=== PATIENT | female | born 1950 | race Caucasian/White ===

== ENCOUNTER 2016-08-07 22:37 | Inpatient (IN) | payer OTHER ==
[2016-08-07] MEDS ORDERED: IPRATROPIUM/ALBUTEROL 3 ML DEYVIAL IH ONE (22:41)
[2016-08-07] MEDS ORDERED: NS 1,000 ML IV ONE (22:41)
--- NOTE | 2016-08-07 22:41 | EDPHY ---
H & P HPI/ROS: HPI CHIEF COMPLAINT: Shortness of breath HISTORY OF PRESENT ILLNESS: This patient is 66-year-old female, significant past medical history for COPD, wears 2-3 L at night, presents emergency room with worsening shortness of breath. Upon EMS arrival patient was found to be 3 word dyspnea, tachypnea, try potting in moderate to severe respiratory distress. She received a DuoNeb breathing treatment around, 125 mg IV Solu- Medrol was brought into the emergency room. Upon arrival to the emergency room she is tachycardic to the 170s, tachypneic to the 40s, tripoding and in severe respiratory distress. I did Greet the patient upon arrival she is moved ER room 2 and placed on full face BiPAP for severe respiratory distress. Past Medical History: COPD, emphysema, oxygen dependent at night hypertension, hyperlipidemia Past Surgical History: Denies significant surgical history Social History: Denies drugs, alcohol, tobacco products, or alcohol Family History: Noncontributory ROS REVIEW OF SYSTEMS: A comprehensive 10 point review of systems is otherwise negative aside from elements mentioned in the history of present illness. Exam Constitutional severe respiratory distress, Anxious,triage nursing summary reviewed, vital signs reviewed, tachycardic, tachypneic Eyes normal conjunctivae and sclera, EOMI, PERRLA. HENT normal inspection, atraumatic, moist mucus membranes, no epistaxis, neck supple/ no meningismus, no raccoon eyes. Respiratory severe respiratory distress, decreased breath sounds bilaterally, tripoding Cardiovascular tachycardic , regular rhythm, no murmur, no edema, distal pulses normal. Gastrointestinal soft, non-tender, no rebound, no guarding, normal bowel sounds, no distension, no pulsatile mass. Genitourinary no CVA tenderness. Musculoskeletal no midline vertebral tenderness, full range of motion, no calf swelling, no tenderness of extremities, no meningismus, good pulses, neurovascularly intact. Skin pink, warm, & dry, no rash, skin atraumatic. Neurologic anxious awake, alert and oriented x 3, AAOx3, moves all 4 extremities equally, motor intact, sensory intact, CN II-XII intact, normal cerebellar, normal vision, normal speech. Psychiatric normal mood/affect. Heme/Lymph/Immune no lymphadenopathy. Differential Diagnosis: Includes but is not limited to in but no particular order: COPD exacerbation, pneumonia, pneumothorax, respiratory distress. Medical Decision Making: This patient will be placed on full face BiPAP she will have continuous albuterol, patient had a chest x-ray, EKG, she will have an ABG after 30 minutes on BiPAP to see where we are. Watch her closely and monitor respiratory status. Re-evaluation: ED x-ray chest one view: clear lung funes however hyperinflated, COPD appearing x-ray. Imaging to by myself. 1119: Re-evaluation at this time patient is on full face BiPAP she does feel much better she is still noted to be tachypneic, better air movement on exam still wheezing. EKG interpretation by me on record in [employer] system. Impression time of EKG 10/26/2017, this is sinus tachycardia rate of 108, there is respiratory artifact in lead 1-3 AVF AVL AFVF however her precordial leads shows sinus rhythm, no ST elevation or significant ST depression. 1126: patient's ABG is pending at this time however she has made a great improvement on full face BiPAP. She did have a continuous neb breathing treatment. She has no chest pain at this time she does feel much better in terms of shortness of breath however does not have any chest pain. I have admitted her to the hospitalist service Dr. lisseth france. She has agreed to admit this patient. This patient is stable for step-down unit. Critical Care: Total Critical Care Time Spent Managing this Patient: 60 minutes. This time was spent Exclusively with this patient. This Care was exclusive of procedures. The Organ System/life at risk was respiratory failure This Patient was in Critical Condition because severe respiratory distress, hypoxia, COPD 1129: re-evaluation is noted her heart rate fluctuates from 120-170 he has very irregular appears to be in AFib with RVR. I have ordered her IV diltiazem bolus 10 mg IV diltiazem drip I have updated the hospitalist service. EKG interpretation by me on record in [employer] system. Impression time of EKG 5, this is AFib rate of 126, there are multiple PVCs nonspecific T-wave abnormality. Source: Patient, EMS Constitutional: Initial Vital Signs Temperature (C) 36.9 C 08/07/16 22:45 Heart Rate 127 H 08/07/16 22:45 Respiratory Rate 24 H 08/07/16 22:45 Blood Pressure 160/90 H 08/07/16 22:45 O2 Sat (%) 84 L 08/07/16 22:45 O2 Delivery Mode Room Air Allergies/Adverse Reactions: No Known Allergies Allergy (Unverified 08/07/16 22:46) Home Medications: Medication Instructions Recorded Albuterol [Proventil Inhaler HFA 1 - 2 puffs IH Q4H PRN 08/08/16 (*)] Aspirin EC [Aspirin EC 81 mg (*)] 81 mg PO DAILY 08/08/16 Atorvastatin Calcium [Lipitor 20 10 mg PO DAILY 08/08/16 mg (*)] Cyanocobalamin [Vitamin B12 (*)] 100 mcg PO DAILY 08/08/16 Levothyroxine [Synthroid 100 mcg 100 mcg PO DAILY06 08/08/16 (*)] Mometasone/Formoterol [Dulera 100 1 puffs IH HS 08/08/16 Mcg/5 Mcg Inhaler] Mometasone/Formoterol [Dulera 100 2 puffs IH DAILY 08/08/16 Mcg/5 Mcg Inhaler] Multivitamins [Multivitamin (*)] 1 each PO DAILY 08/08/16 Tears/Dextran 70/Hypromellose 1 drop EACHEYE Q2 PRN 08/08/16 [Natural Balance Tears (*)] Medical Decision Making - Data Points Laboratory Results: Laboratory Results 08/07/16 22:40 08/07/16 22:40 Microbiology Results: MICROBIOLOGY 08/07/16 23:10 Blood Blood Culture - Preliminary 08/07/16 22:55 Blood Blood Culture - Preliminary Medications Given: Discontinued Medications Albuterol/Ipratropium (Duoneb) 3 ml IH EDNOW ONE Stop: 08/07/16 22:42 Last Admin: 08/07/16 22:50 Dose: 3 ml Diltiazem HCl (Cardizem 25 Mg/5 Ml Vial) 10 mg IVP EDNOW ONE Stop: 08/07/16 23:30 Last Admin: 08/07/16 23:37 Dose: 10 mg Diltiazem HCl (Cardizem 25 Mg/5 Ml Vial) 10 mg IVP ONCE ONE Stop: 08/10/16 12:31 Last Admin: 08/10/16 12:53 Dose: 10 mg Sodium Chloride (Ns) 1,000 mls @ 0 mls/hr IV ONCE ONE PRN Reason: As Directed Stop: 08/07/16 22:42 Last Admin: 08/07/16 22:54 Dose: 1,000 mls Magnesium Sulfate (Magnesium Sulf 2 Gm (Premix)) 50 mls @ 50 mls/hr IV EDNOW ONE Stop: 08/07/16 23:41 Last Admin: 08/07/16 22:57 Dose: 50 mls Levofloxacin/Dextrose (Levaquin 750 Mg (Premix)) 150 mls @ 100 mls/hr IV ONCE ONE PRN Reason: Protocol Stop: 08/08/16 00:40 Last Admin: 08/07/16 23:15 Dose: 150 mls Diltiazem HCl 125 mg/ Dextrose 150 mls @ 0 mls/hr IV EDNOW ONE; As Directed PRN Reason: Protocol Stop: 08/07/16 23:30 Last Admin: 08/08/16 00:00 Dose: 150 mls Sodium Chloride (Ns) 1,000 mls @ 100 mls/hr IV CONT [facility] Stop: 02/03/17 23:44 Last Admin: 08/08/16 16:39 Dose: 1,000 mls Levofloxacin/Dextrose (Levaquin 750 Mg (Premix)) 150 mls @ 100 mls/hr IV Q24H EDEN PRN Reason: Protocol Stop: 09/07/16 08:59 Last Admin: 08/10/16 09:52 Dose: 150 mls Levothyroxine Sodium (Synthroid) 100 mcg PO DAILY06 [facility] Stop: 02/04/17 11:29 Last Admin: 08/09/16 05:34 Dose: 100 mcg Methylprednisolone Sodium Succinate (Solu-Medrol) 60 mg IVP Q6HRS [facility] Stop: 02/04/17 00:00 Last Admin: 08/09/16 11:46 Dose: 60 mg Departure - Departure Disposition: [facility] Acute Clinical Impression: COPD exacerbation, Respiratory distress, Atrial fibrillation with rapid ventricular response Condition: Critical
[2016-08-07] MEDS ORDERED: IPRATROPIUM/ALBUTEROL 3 ML DEYVIAL ONE (22:42)
[2016-08-07] MEDS ORDERED: MAGNESIUM SULF 2 GM/WATER 50 ML IV ONE (22:42)
[2016-08-07] MEDS ORDERED: ALBUTEROL 3 ML DEYVIAL ONE (22:42)
[2016-08-07 22:49] LABS: % IMMATURE GRANULYOCYTES 0.8 % (0.0-1.1); ABSOLUTE IMMATURE GRANULOCYTES 0.13 10^3/uL (0.00-0.10); ADD DIFF? NO; ADD MORPH? NO; ADD SCAN? NO; ATYPICAL LYMPHOCYTE FLAG 10 (0-99); FRAGMENT RBC FLAG 0 (0-99); HEMATOCRIT 50.6 % (38.0-47.0); HEMOGLOBIN 17.4 g/dL (12.6-16.3); LEFT SHIFT FLG 0 (0-99); LIPEMIA HEMOLYSIS FLAG 90 (0-99); MEAN CELL HEMOGLOBIN 31.1 pg (27.9-34.1); MEAN CELL HEMOGLOBIN CONCENTR. 34.4 g/dL (32.4-36.7); MEAN CELL VOLUME 90.4 fL (81.5-99.8); MEAN PLATELET VOLUME 8.8 fL (8.7-11.7); PLATELET CLUMPS FLAG 20 (0-99); PLATELET COUNT 320 10^3/uL (150-400); RED CELL DISTRIBUTION WIDTH 11.9 % (11.5-15.2)
[2016-08-07 23:01] LABS: APTT 25.2 SEC (23.0-38.0); INR 0.89 (0.83-1.16); PROTIME(PATIENT) 11.9 SEC (12.0-15.0)
[2016-08-07 23:04] LABS: ANION GAP 12 mEq/L (8-16); CALCIUM 9.8 mg/dL (8.5-10.4); CARBON DIOXIDE 33 mEq/l (22-31); CHLORIDE 94 mEq/L (97-110); CREATININE 0.5 mg/dL (0.6-1.0); GLOMERULAR FILTRATION RATE > 60; GLUCOSE 131 mg/dL (70-100); SODIUM 139 mEq/L (134-144)
[2016-08-07 23:16] LABS: TROPONIN I < 0.012 ng/mL (0-0.034)
--- NOTE | 2016-08-07 23:28 | CPEKG ---
Heart Rate: 117 RR Interval: 513 P-R Interval: 131 QRSD Interval: 92 QT Interval: 316 QTC Interval: 441 P [place]: 85 QRS [place]: 114 T Wave [place]: -61 EKG Severity - ABNORMAL ECG - EKG Impression: SINUS TACHYCARDIA EKG Impression: VENTRICULAR PREMATURE COMPLEX EKG Impression: RIGHT ATRIAL ABNORMALITY EKG Impression: ANTERIOR INFARCT, AGE INDETERMINATE EKG Impression: NONSPECIFIC T ABNORMALITIES, INFERIOR LEADS Electronically Signed By: Mari Powers 08-Aug-2016 20:39:47
[2016-08-07] MEDS ORDERED: DILTIAZEM 125 MG in D5W 125 ML IV ONE (23:29)
[2016-08-07] MEDS ORDERED: DILTIAZEM 25 MG/5 ML VIAL IVP ONE (23:29)
[2016-08-07 23:45] LABS: BASE EXCESS -0.5 mEq/L (-2.5-2.5); BICARBONATE 24 mEq/L (22-26); MEASURED OXYGEN SATURATION 99 % (92-95); PCO2 39 mmHg (34-38); PO2 189 mmHg (65-75); TCO2 25 mEq/L (23-27)
[2016-08-07] MEDS ORDERED: ACETAMINOPHEN 325 MG TAB PO PRN (23:46)
[2016-08-07] MEDS ORDERED: IPRATROPIUM BROMIDE 0.5 MG/2.5 ML DEYVIAL IH PRN (23:49)
[2016-08-07] MEDS ORDERED: ALBUTEROL 3 ML DEYVIAL IH PRN (23:49)
[2016-08-07 23:53] LABS: BIPAP YES; EXP PRESSURE 5; INSP PRESSURE 12; O2 CONCENTRATIION 70 % (0-100); P/F RATIO 270 RATIO
[2016-08-08] MEDS: methylPREDNISolone SOD SUCC 125 MG/2 ML VIAL IVP SCH ×5 (00:54→23:32)
--- NOTE | 2016-08-08 01:37 | PDGENHP ---
History and Physical - Chief Complaint shortness of breath - History of Present Illness Pt is 66/F with COPD, HLD who presents to the ED with acute respiratory failure. Pt states her symptoms first started on 08/04 when she noticed "cold- like" symptoms, including nasal congestion, sneezing and cough. These symptoms triggered wheezing and shortness of breath and her cough became productive of whitish sputum. She went to her PMD's office and was prescribed Prednisone and an antibiotic. She began taking these, as well as her Dulera and albuterol, but symptoms persisted and worsened. On 08/07, after returning home from lunch, patient began to feel significantly worse. By the evening she became acutely short of breath, unresponsive to albuterol, and began to feel significantly anxious. Her then called EMS. Upon EMS' arrival, pt was in respiratory distress; she was given IV steroids and nebs and transported to the ED. Regarding her COPD, pt states she has never been hospitalized for a COPD exacerbation and has never been intubated in her life. She reports rarely having exacerbations that require steroid treatment, states that prior to 08/04 , her last course of prednisone was > 1 year ago. She also denies any recent fever, chills, abd pain, n/v/d, dysuria and reports a normal PO intake recently. Upon arrival to the ED, pt was receiving a neb treatment, but tripoding and using accessory muscles of respiration. VS were significant for hypoxia, tachycardia and tachypneic, but she was afebrile. She was placed on BIPAP, given Mg, continuous nebs and resp status began to improve. Labs were significant for leukocytosis, elevated lactic acid and elevated serum bicarb. CXR was neg for any obvious infiltrate and she was then admitted to the hospitalist service for further management. History Information - Allergies/Home Medication List Allergies/Adverse Reactions: No Known Allergies Allergy (Unverified 08/07/16 22:46) Home Medications: Albuterol 08/07/16 [Last Taken Unknown] Dulera 100 Mcg/5 Mcg Inhaler 08/07/16 [Last Taken Unknown] Lipitor 08/07/16 [Last Taken Unknown] Unk Hypothyroid Med 08/07/16 [Last Taken Unknown] I have personally reviewed and updated: family history, medical history, social history, surgical history - Past Medical History Additional medical history: COPD. Continuous O2 at night, 2L NC. HLD - Surgical History Reports: no pertinent surgical hx - Family History Positive for: non-pertinent - Social History Smoking Status: Former smoker (quit > 10 yrs ago; smoker x 30 yrs) Alcohol Use: None Drug Use: None Additional social history: Pt lives with , is independent in ADLs. Review of Systems ROS: 10pt was reviewed & negative except for what was stated in HPI & below Physical Exam Temp Pulse Resp BP Pulse Ox 36.3 C 168 H 15 92/50 L 97 08/08/16 00:19 08/08/16 01:00 08/08/16 01:00 08/08/16 01:00 08/08/16 01:00 FIO2 (%) 40 Constitutional: other (in mild-moderate respiratory distress; on BIPAP; thin ) Eyes: PERRL, anicteric sclera, EOMI Ears, Nose, Mouth, Throat: moist mucous membranes, hearing normal, ears appear normal, no oral mucosal ulcers Cardiovascular: no murmur, rub, or gallop, pulses symmetric bilaterally, tachycardia, No JVD, No edema Peripheral Pulses: 2+: dorsalis-pedis (R), dorsalis-pedis (L) Respiratory: reduced air movement, expiratory wheeze, respiratory distress (mild -mod) Gastrointestinal: normoactive bowel sounds, soft, non-tender abdomen, no palpable masses Genitourinary: no bladder fullness, no bladder tenderness Skin: warm, normal color, no rashes or abrasions, no fluctuance, No mottled Musculoskeletal: full muscle strength, no muscle tenderness, normal joint ROM, no joint effusions Neurologic: AAOx3, sensation intact bilaterally, CN II-XII Intact, No weakness, No numbness Psychiatric: interacting appropriately, not anxious, not encephalopathic, thought process linear Lab Data & Imaging Review 08/08/16 04:30 08/08/16 04:30 WBC 16.46 10^3/uL (3.80-9.50) H 08/07/16 22:40 RBC 5.60 10^6/uL (4.18-5.33) H 08/07/16 22:40 Hgb 17.4 g/dL (12.6-16.3) H 08/07/16 22:40 Hct 50.6 % (38.0-47.0) H 08/07/16 22:40 MCV 90.4 fL (81.5-99.8) 08/07/16 22:40 MCH 31.1 pg (27.9-34.1) 08/07/16 22:40 MCHC 34.4 g/dL (32.4-36.7) 08/07/16 22:40 RDW 11.9 % (11.5-15.2) 08/07/16 22:40 Plt Count 320 10^3/uL (150-400) 08/07/16 22:40 MPV 8.8 fL (8.7-11.7) 08/07/16 22:40 Neut % (Auto) 74.1 % (39.3-74.2) 08/07/16 22:40 Lymph % (Auto) 16.6 % (15.0-45.0) 08/07/16 22:40 [place] % (Auto) 8.3 % (4.5-13.0) 08/07/16 22:40 Eos % (Auto) 0.1 % (0.6-7.6) L 08/07/16 22:40 Baso % (Auto) 0.1 % (0.3-1.7) L 08/07/16:40 Nucleat RBC Rel Count 0.0 % (0.0-0.2) 08/07/16 22:40 Absolute Neuts (auto) 12.20 10^3/uL (1.70-6.50) H 08/07/16 22:40 Absolute Lymphs (auto) 2.73 10^3/uL (1.00-3.00) 08/07/16 22:40 Absolute Monos (auto) 1.36 10^3/uL (0.30-0.80) H 08/07/16 22:40 Absolute Eos (auto) 0.02 10^3/uL (0.03-0.40) L 08/07/16 22:40 Absolute Basos (auto) 0.02 10^3/uL (0.02-0.10) 08/07/16 22:40 Absolute Nucleated RBC 0.00 10^3/uL (0-0.01) 08/07/16 22:40 Immature Gran % 0.8 % (0.0-1.1) 08/07/16 22:40 Immature Gran # 0.13 10^3/uL (0.00-0.10) H 08/07/16 22:40 PT 11.9 SEC (12.0-15.0) L 08/07/16 22:40 INR 0.89 (0.83-1.16) 08/07/16 22:40 APTT 25.2 SEC (23.0-38.0) 08/07/16 22:40 Puncture Site LEFT RADIAL 08/07/16 23:41 Patient Temperature 37.0 DEGREES 08/07/16 23:41 pCO2 39 mmHg (34-38) H 08/07/16 23:41 pO2 189 mmHg (65-75) H 08/07/16 23:41 Total CO2 25 mEq/L (23-27) 08/07/16 23:41 ABG pH 7.40 (7.35-7.45) 08/07/16 23:41 ABG PO2/FiO2 Ratio 270 RATIO 08/07/16 23:41 ABG O2 Saturation 99 % (92-95) H 08/07/16 23:41 ABG Base Excess -0.5 mEq/L (-2.5-2.5) 08/07/16 23:41 VBG Lactic Acid 2.5 mmol/L (0.7-2.1) H 08/07/16 22:40 O2 Concentration % 70 % (0-100) 08/07/16 23:41 Expiratory Pressure 5 08/07/16 23:41 Inspiratory Pressure 12 08/07/16 23:41 Mode BiPAP YES 08/07/16 23:41 Sodium 139 mEq/L (134-144) 08/07/16 22:40 Potassium 5.0 mEq/L (3.5-5.2) 08/07/16 22:40 Chloride 94 mEq/L (97-110) L 08/07/16 22:40 Carbon Dioxide 33 mEq/l (22-31) H 08/07/16 22:40 Bicarbonate 24 mEq/L (22-26) 08/07/16 23:41 Anion Gap 12 mEq/L (8-16) 08/07/16 22:40 BUN 15 mg/dL (7-23) 08/07/16 22:40 Creatinine 0.5 mg/dL (0.6-1.0) L 08/07/16 22:40 Estimated GFR > 60 08/07/16 22:40 Glucose 131 mg/dL (70-100) H 08/07/16 22:40 Calcium 9.8 mg/dL (8.5-10.4) 08/07/16 22:40 Troponin I < 0.012 ng/mL (0-0.034) 08/07/16 22:40 NT-Pro-B Natriuret Pep 51 pg/mL (0-125) 08/07/16 22:40 Influenza Typ A,B (DFA) NEGATIVE FOR FLU (NEGATIVE) 08/07/16 22:50 Visualized and Interpreted Chest x-ray results: Yes Chest X-Ray results: other (hyperinflation, flattened diaphragms; no acute infiltrate or effusion) Visualized and Interpreted EKG results: Yes EKG Interpretation: Positive for: normal sinsus rhythm (sinus tachycardia, no obvious ST/T wave changes; poor R wave progression) Assessment & Plan Assessment: Pt is 66/F with COPD, chronic respiratory failure who presents to the ED with 3 days of URI symptoms which have likely triggered an acute COPD exacerbation and acute on chronic respiratory failure. Plan: # acute on chronic respiratory failure, acute COPD exacerbation Pt presented to ED in moderate to severe respiratory distress, manifested by hypoxia, accessory muscle use, decreased air movement on exam and elevated lactic acid. Acute hypoxic resp failure likely due to acute COPD exacerbation. Pt states recent URI-type symptoms have triggered this. CXR neg for obvious infiltrate/pneumonia. Respiratory distress improved with ED treatments, including BIPAP and nebs. ABG on BIPAP reveals adequate gas exchange/ oxygenation. - cont BIPAP overnight - solumedrol 60 mg q6h - duoneb standing q6h - alb/ipra nebs q2-4h prn - will also cont empiric Levaquin - npo while on BIPAP, reassess in AM # leukocytosis Although patient meets sepsis criteria (tachycardia/tachypenia/leukocytosis, elevated lactate), it is likely related to her presentation in acute respiratory failure. Pt's description of URI symptoms seem consistent with a viral syndrome, however, given her comorbid COPD, will also cover empirically with anti-microbials. - f/u blood cultures - obtain sputum culture - repeat lactic acid - cont levaquin 750 mg qday # tachycardia Initial EKG was sinus tachycardia, however, over course of ED stay pt had developed an SVT (170-180s), appeared to be Afib. Pt unaware of prior history of Afib. She was started on diltiazem with improvement. Denies chest pain or palpitations. Likely provoked by resp failure, and CHADSVasc 1, so no indication for systemic anticoagulation at this time. Will start aspirin. - diltiazem drip for rate control - aspirin 81 mg daily - repeat EKG in AM - trend troponin - check TTE # hyperlipidemia Cont home statin. # dispo: admit to inpt service for > 2 MN stay # gen NPO until resp status stabilizes DVT ppx: lovenox Full code
[2016-08-08] MEDS ORDERED: DILTIAZEM 125 MG in D5W 125 ML IV SCH (02:00)
[2016-08-08] MEDS ORDERED: LORazepam 2 MG/ML INJ ONE (02:39)
[2016-08-08] MEDS: LORazepam 2 MG/ML INJ IVP PRN ×3 (02:45→20:43)
[2016-08-08] MEDS: NS 1,000 ML IV SCH ×2 (05:00→16:39)
[2016-08-08 05:01] LABS: % IMMATURE GRANULYOCYTES 1.1 % (0.0-1.1); ABSOLUTE IMMATURE GRANULOCYTES 0.16 10^3/uL (0.00-0.10); ADD DIFF? NO; ADD MORPH? NO; ADD SCAN? NO; ATYPICAL LYMPHOCYTE FLAG 10 (0-99); FRAGMENT RBC FLAG 0 (0-99); HEMOGLOBIN 14.1 g/dL (12.6-16.3); LEFT SHIFT FLG 0 (0-99); LIPEMIA HEMOLYSIS FLAG 90 (0-99); MEAN CELL HEMOGLOBIN 31.2 pg (27.9-34.1); MEAN CELL HEMOGLOBIN CONCENTR. 34.4 g/dL (32.4-36.7); MEAN CELL VOLUME 90.7 fL (81.5-99.8); MEAN PLATELET VOLUME 8.9 fL (8.7-11.7); PLATELET CLUMPS FLAG 0 (0-99); PLATELET COUNT 223 10^3/uL (150-400); RED BLOOD CELL COUNT 4.52 10^6/uL (4.18-5.33); RED CELL DISTRIBUTION WIDTH 11.9 % (11.5-15.2)
[2016-08-08 05:17] LABS: ANION GAP 10 mEq/L (8-16); CALCIUM 8.4 mg/dL (8.5-10.4); CARBON DIOXIDE 27 mEq/l (22-31); CHLORIDE 99 mEq/L (97-110); CREATININE 0.4 mg/dL (0.6-1.0); GLOMERULAR FILTRATION RATE > 60; GLUCOSE 152 mg/dL (70-100); MAGNESIUM 2.5 mg/dL (1.6-2.3); POTASSIUM 4.4 mEq/L (3.5-5.2); SODIUM 136 mEq/L (134-144)
[2016-08-08 05:23] LABS: TROPONIN I 0.061 ng/mL (0-0.034)
[2016-08-08 05:26] LABS: CREATINE KINASE-MB FRACTION 3.98 ng/mL (0-3.19)
[2016-08-08 05:32] LABS: CK-MB INTERPRETATION POSITIVE (NEGATIVE)
[2016-08-08] MEDS: IPRATROPIUM/ALBUTEROL 3 ML DEYVIAL IH SCH ×4 (05:35→21:21)
[2016-08-08 05:38] LABS: BASE EXCESS -0.3 mEq/L (-2.5-2.5); BICARBONATE 24 mEq/L (22-26); MEASURED OXYGEN SATURATION 93 % (92-95); PCO2 39 mmHg (34-38); PO2 67 mmHg (65-75); TCO2 25 mEq/L (23-27)
[2016-08-08 05:42] LABS: BIPAP YES; EXP PRESSURE 5; INSP PRESSURE 12; O2 CONCENTRATIION 40 % (0-100); P/F RATIO 168 RATIO
--- NOTE | 2016-08-08 05:46 | CPEKG ---
Heart Rate: 91 RR Interval: 659 P-R Interval: 192 QRSD Interval: 82 QT Interval: 348 QTC Interval: 429 P [place]: 82 QRS [place]: 100 T Wave [place]: 60 EKG Severity - ABNORMAL ECG - EKG Impression: SINUS RHYTHM EKG Impression: ANTERIOR INFARCT, AGE INDETERMINATE Preliminary Awaiting MD Review
--- NOTE | 2016-08-08 08:12 | DX ---
Portable AP chest. August 07, 2016 at 22:53 History: Dyspnea. Findings: Underlying hyperinflation is compatible with COPD. No focal infiltrate or pleural effusion. Heart size is normal. Impression: Emphysema.
[2016-08-08] MEDS: ENOXAPARIN 40 MG/0.4 ML SYR SC SCH ×2 (09:48→14:36)
[2016-08-08] MEDS ORDERED: TEARS/DEXTRAN 70/HYPROMELLOSE 15 ML OPHT.BTL EACHEYE PRN (11:28)
[2016-08-08] MEDS ORDERED: ATORVASTATIN CALCIUM 20 MG TAB PO SCH (11:30)
--- NOTE | 2016-08-08 12:58 | SOAPPROG ---
SOAP Progress Note Assessment/Plan: Assessment: 1. acute hypoxemic resp failure: 2/2 2. COPD exacerbation -cont IV steroids, nebs, Bipap 3. Hypothyroidism Disp: warrants ICU admission given acute hypoxia requiring IV steroids, bipap Subjective: S: anxious and SOB this morning A&P: 1. Acute hypoxemic resp failure 2/ 2. Acute COPD exacerbation -cont IV steroids, Duonebs, PRN Bipap 3. Hypothyroidism -LT4 Objective: Vital Signs Temp Pulse Resp BP Pulse Ox 36.7 C 95 17 112/69 98 08/08/16 08:00 08/08/16 12:05 08/08/16 12:05 08/08/16 10:00 08/08/16 12:05 Laboratory Results 08/08/16 04:30 08/08/16 04:30 08/07/16 08/08/16 08/09/16 05:59 05:59 05:59 Intake Total 1738 Balance 1738 PT 11.9 SEC (12.0-15.0) L 08/07/16 22:40 INR 0.89 (0.83-1.16) 08/07/16 22:40 ICD10 Worksheet Patient Problems: Problems Problem Status Diagnosed COPD exacerbation Acute Respiratory distress Acute
[2016-08-08] MEDS: ATORVASTATIN CALCIUM 10 MG TAB PO SCH (14:37)
[2016-08-08] MEDS: ASPIRIN EC 81 MG TAB PO SCH (14:37)
[2016-08-08] MEDS: CYANO/VITAMIN B12 100 MCG TAB PO SCH (14:37)
[2016-08-08] MEDS: MULTIVITAMINS 1 EACH TAB PO SCH (14:38)
[2016-08-08] MEDS: LEVOTHYROXINE 100 MCG TAB PO SCH (14:38)
--- NOTE | 2016-08-08 16:03 | GCON ---
[f rep st] CONSULTATION CRITICAL CARE CONSULTATION DATE OF CONSULTATION: 08/08/2016 REFERRING PHYSICIAN: Carolyne Saucedo MD CHIEF COMPLAINT: Shortness of breath. HISTORY OF PRESENT ILLNESS: This 66-year-old female has COPD which is oxygen dependent at night and sometimes with exertion during the day. She is followed by [facility] and has been on bronchodilators wi th at least 1 course of corticosteroids in the past few months as a brief treatment. Four days ago, she developed an upper respiratory infection with nasal congestion and sneezing and a cough. The co ugh produced some white sputum. She denies fever, sweats, or chills. There was no orthopnea, paroxy smal nocturnal dyspnea, pedal edema. She had no chest pain. She has noticed occasional wheezing. H er shortness of breath was quite severe and she came to [facility] to the emergency r oom. She was started on intravenous steroids, updraft nebulizers, and transferred to the intensive c are unit. She was better this morning with less shortness of breath and was just on nasal oxygen at 2 L, but then had increased anxiety and went back on BiPAP. Lorazepam in small doses has seemed to h elp her anxiety somewhat. Prior to this, her states that she was able to walk through stores using a bottle oxygen, but really has not been exerting herself much more than that. Apparently, th ere was some discussion of pulmonary rehab in the past, but she has not entered into that. PAST MEDICAL HISTORY: 1. COPD. 2. Hyperlipidemia. PAST SURGICAL HISTORY: None. ALLERGIES TO MEDICATIONS: None. FAMILY HISTORY: Without early arteriosclerotic vascular disease. SOCIAL HISTORY: She quit smoking approximately 10 years ago after an approximate 25-[id number]-[id number] histor y. Alcohol: None. Illicit drug use: None. The patient does live with her and helps with the chores around the house and is independent. REVIEW OF SYSTEMS: An 11-point review of systems is otherwise noncontributory, except as included ab ove. PHYSICAL EXAMINATION: GENERAL: The patient is uncomfortable and short of breath on BiPAP. VITAL SI GNS: Blood pressure 128/72, pulse of 113, respiratory rate of 20, oxygen saturation of 93% on 40% Fi O2 with BiPAP, she is afebrile. HEENT: Normal head without external evidence of trauma. Eyes: Fun di not visualized. Ears: Canals clear. Nose: Without septal deviation or polyps. Mouth: Orophar ynx clear. NECK: Supple without adenopathy. No jugular venous distention. CHEST: Very decreased breath sounds without wheezes, rhonchi or rales heard. HEART: PMI near the midepigastrium. S1 and S2 are normal. There is no S3, S4 or murmur. ABDOMEN: Soft, without organomegaly or masses. No br uits are heard. EXTREMITIES: Full range of motion without clubbing or cyanosis. There is trace brandyn ma present bilaterally. LAB DATA: Chest x-ray shows evidence of hyperinflation consistent with COPD, but no acute infiltrate s. Arterial blood gas: PO2 67, pCO2 39, pH 7.40 on BiPAP at 40%. White blood count is 15,070 with hematocrit of 41, platelets of 223,000. Chemistry shows normal electrolytes and a creatinine, with a slightly high glucose of 152. The troponin is very slightly elevated at 0.05. EKG shows a possible remote anterior infarct. IMPRESSION: 1. Chronic obstructive pulmonary disease exacerbation. 2. Hyperlipidemia. PLAN: The patient will be given corticosteroids and she is on Levaquin. Updraft nebulizers are bein g given. BiPAP is being used and hopefully she will turn around soon and not require BiPAP any longe r. Echocardiogram will also be obtained. /[id number]/MODL
--- NOTE | 2016-08-08 16:58 | CPEKG ---
Heart Rate: 84 RR Interval: 714 P-R Interval: 184 QRSD Interval: 82 QT Interval: 364 QTC Interval: 431 P [place]: 77 QRS [place]: -23 T Wave [place]: 68 EKG Severity - ABNORMAL ECG - EKG Impression: SINUS RHYTHM EKG Impression: PROBABLE INFERIOR INFARCT, OLD EKG Impression: ANTERIOR INFARCT, AGE INDETERMINATE Preliminary Awaiting MD Review
[2016-08-09 04:09] LABS: HEMATOCRIT 39.2 % (38.0-47.0); HEMOGLOBIN 13.6 g/dL (12.6-16.3); MEAN CELL HEMOGLOBIN 31.2 pg (27.9-34.1); MEAN CELL HEMOGLOBIN CONCENTR. 34.7 g/dL (32.4-36.7); MEAN CELL VOLUME 89.9 fL (81.5-99.8); RED BLOOD CELL COUNT 4.36 10^6/uL (4.18-5.33); RED CELL DISTRIBUTION WIDTH 11.9 % (11.5-15.2)
[2016-08-09 04:20] LABS: ANION GAP 6 mEq/L (8-16); CALCIUM 8.8 mg/dL (8.5-10.4); CARBON DIOXIDE 28 mEq/l (22-31); CHLORIDE 104 mEq/L (97-110); CREATININE 0.4 mg/dL (0.6-1.0); GLOMERULAR FILTRATION RATE > 60; GLUCOSE 124 mg/dL (70-100); POTASSIUM 4.3 mEq/L (3.5-5.2); SODIUM 138 mEq/L (134-144)
[2016-08-09] MEDS: methylPREDNISolone SOD SUCC 125 MG/2 ML VIAL IVP SCH ×2 (05:34→11:46)
[2016-08-09] MEDS: LEVOTHYROXINE 100 MCG TAB PO SCH (05:34)
[2016-08-09] MEDS: IPRATROPIUM/ALBUTEROL 3 ML DEYVIAL IH SCH ×4 (05:35→22:18)
[2016-08-09] MEDS: ATORVASTATIN CALCIUM 10 MG TAB PO SCH (08:38)
[2016-08-09] MEDS: CYANO/VITAMIN B12 100 MCG TAB PO SCH (08:38)
[2016-08-09] MEDS: MULTIVITAMINS 1 EACH TAB PO SCH (08:38)
[2016-08-09] MEDS: ASPIRIN EC 81 MG TAB PO SCH (08:39)
[2016-08-09] MEDS: ENOXAPARIN 40 MG/0.4 ML SYR SC SCH (08:39)
--- NOTE | 2016-08-09 08:39 | HOSPPROG ---
Hospitalist Progress Note Assessment/Plan: Assessment: 1. acute hypoxemic resp failure: 2/2 2. COPD exacerbation -cont IV steroids, nebs, Bipap 3. Hypothyroidism Disp: warrants ICU admission given acute hypoxia requiring IV steroids, bipap Objective: Vital Signs Temp Pulse Resp BP Pulse Ox 36.7 C 107 H 18 125/79 H 86 L 08/09/16 03:54 08/09/16 05:38 08/09/16 05:38 08/09/16 05:38 08/09/16 06:08 Laboratory Results 08/09/16 03:50 08/09/16 03:50 08/08/16 08/09/16 08/10/16 05:59 05:59 05:59 Intake Total 1738 2169 Output Total 600 Balance 1738 1569 PT 11.9 SEC (12.0-15.0) L 08/07/16 22:40 INR 0.89 (0.83-1.16) 08/07/16 22:40 ICD10 Worksheet Patient Problems: Problems Problem Status Diagnosed COPD exacerbation Acute Respiratory distress Acute
--- NOTE | 2016-08-09 09:09 | ECHO ---
[id number] + + [address] : : [place] [address] : : [phone] + + Adult Echocardiographic Report + ---------+ :Name: MARIO CEBALLOScristobal Date: 08/08/2016 04:16 PM : : Hospital Admission Number: [id number] Lisa silva: [birth year]: :: 1950 Gender: Female Height: 65 i n : :Age: 66 yrs Race: WH Weight: 90 l b : :Reason For Study: Question old anterior infarct on EKG : : BSA: 1.4 met ers2 : :History: COPD : + ---------+ MMode/2D Measurements & Calculations IVSd: 0.47 cm LVIDd: 4.1 cm FS: 51.6 % Ao root diam: 3.2 cm LVPWd: 0.72 cm LVIDs: 2.0 cm EDV(Teich): 74.5 ml LA dimension: 2.7 cm ESV(Teich): 12.6 ml EF(Teich): 83.2 % Normal Measurement Values: + + :LVIDd (3.5-5.7cm) IVSd (0.6-1.1cm) LVPWd (0.6-1.1cm) Aortic Root (2.0-3.7cm)Left Atrium (1.5-4.0cm): :LV Vol(d) (76-115ml) LV Vol(s) (29-48ml) Ejec Fraction (50-65%)PV Russell (0.6- 1.2m/s) TV Russell (0.4-1.0m/s) : :MV E Russell (0.8-1.0m/s)MV A Russell (0.3-1.0m/s)LVOT Russell (0.7-1.2m/s) Asc Ao Russell ( 0.9-1.8m/s) : + + Doppler Measurements & Calculations MV E max russell: 63.7 cm/sec Ao V2 max: 111.3 cm/sec TR max russell: 281.0 cm/sec MV A max russell: 73.5 cm/sec Ao max P.0 mmHg TR max P.6 mmHg MV E/A: 0.87 RAP systole: 5.0 mmHg RVSP(TR): 36.6 mmHg Left Ventricle The left ventricle is normal in size. There is normal left ventricular wall thickness. The left ventricle is hyperdynamic. Ejection Fraction = 75-80%. Abnormal septal motion due to RV abnormalities. Right Ventricle The right ventricle is moderately dilated. The right ventricular systolic function is mildly reduced. Atria The left atrial size is normal. Right atrial size is normal. The interatrial septum is intact with no evidence for an atrial septal defect. Mitral Valve The mitral valve is normal in structure and function. Borderline posterior mitral leaflet prolapse. There is no mitral valve stenosis. There is mild to moderate mitral regurgitation. Tricuspid Valve Normal tricuspid valve. There is mild tricuspid regurgitation. Right ventricular systolic pressure is 42mmHg. There is Doppler evidence for mild pulmonary hypertension. Aortic Valve The aortic valve is trileaflet. The aortic valve opens well. There is no aortic stenosis. There is no aortic insufficiency. Pulmonic Valve The pulmonic valve is normal in structure and function. There is no pulmonic valvular regurgitation. Great Vessels The aortic root is normal size. Pericardium/Pleural Trivial anterior pericardial effusion. Conclusion A complete two-dimensional transthoracic echocardiogram was performed (2D, M-mode, Doppler and color flow Doppler). The left ventricle is hyperdynamic. Ejection Fraction = 75-80%. Abnormal septal motion due to RV abnormalities RV is moderately dilated with mildly reduced systolic function. Borderline posterior mitral leaflet prolapse. There is mild to moderate mitral regurgitation. There is mild tricuspid regurgitation. Right ventricular systolic pressure is 42mmHg. There is Doppler evidence for mild pulmonary hypertension. Trivial anterior pericardial effusion Final Reading Physician: Dr Cadence Salinas electronically signed on 08/09/2016 09:08 AM Ordering Physician: KAYDEN DIXON Performed By: Babs Story, REEDCS
--- NOTE | 2016-08-09 09:14 | PDINTPN ---
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 Plan: Cardiac echo pending Stop IV fluids PT and OT for ambulation and strengthening and home evaluation Proph: patricia 08/09/16 09:14 Subjective: Dry harsh cough Objective: Vital Signs Temp Pulse Resp BP Pulse Ox 36.4 C 106 H 22 H 116/72 95 08/09/16 08:00 08/09/16 08:00 08/09/16 08:00 08/09/16 08:00 08/09/16 08:00 Laboratory Results 08/09/16 03:50 08/09/16 03:50 08/08/16 08/09/16 08/10/16 05:59 05:59 05:59 Intake Total 1738 2169 Output Total 600 Balance 1738 1569 PT 11.9 SEC (12.0-15.0) L 08/07/16 22:40 INR 0.89 (0.83-1.16) 08/07/16 22:40 Physical Exam - Physical Exam General Appearance: mild distress EENT: normal ENT inspection Neck: non-tender Respiratory: wheezing Cardiac/Chest: regular rate, rhythm Abdomen: non-tender, soft Back: Normal inspection Skin: warm/dry Lymphatic: no adenopathy Extremities: non-tender, No pedal edema Neuro/Psych: alert, oriented x 3 ICD10 Worksheet Patient Problems: Problems Problem Status Diagnosed COPD exacerbation Acute Respiratory distress Acute
--- NOTE | 2016-08-09 10:39 | GCON ---
[f rep st] CONSULTATION CARDIAC CONSULTATION DATE OF CONSULTATION: 08/09/2016 CHIEF COMPLAINT: Abnormal cardiac enzymes, EKG. HISTORY OF PRESENT ILLNESS: This is a very pleasant 66-year-old female who has longstanding oxygen-d ependent COPD, who is on chronic inhaled steroids, followed by [facility]. She occasionally nee ds oral steroids. Apparently around [place] time she started to get cold-like symptoms and had an acute decline. She came into the emergency room, she was placed on BiPAP and steroids, and today is now breathing without aid of BiPAP and just on oxygen. Her EKG showed poor R-wave progression, she r emains in sinus rhythm. She states that there was "a silent heart attack in the past." This was pro bably 5-6 years ago, possibly picked up by a nuclear stress test. No cardiac catheterization was esa r performed. Her cardiac enzymes showed normal CK, with mild MB positivity, with also a very low lev el troponin. An echocardiogram done yesterday showed normal LV function, without ischemic wall motio n abnormality. There was some septal flattening consistent with her RV enlargement. Her pulmonary p ressures were mildly elevated in the 40 mmHg by this test. Her rhythm has been stable, normal sinus rhythm. Cardiac risk factors include cigarettes. She apparently is on statin drugs with very good c ontrol. In speaking to her, her exercise is clearly limited by her COPD. At this point, I feel most of her process is a pulmonary process, she is improving on that therapy. I did tell her that if fur ther complications were to occur, we would probably need to perform cardiac catheterization which, i n her case, would probably require intubation as she cannot lie flat to tolerate the test. She under stands and accepts this. She denies any chest pain at this point. She is comfortable with watchful waiting approach, and I agree. MEDICATIONS: Lipitor and lung medicine. No hypertension meds. ALLERGIES: She has no known allergies. REVIEW OF SYSTEMS: Positive for COPD and her recent URI. She denies any PND, orthopnea, syncope. FAMILY HISTORY: Negative for early cardiovascular disease. SOCIAL: She lives with her . She is independent, and continues to work. LABORATORY: White count 15, hemoglobin 13, potassium 4.3, creatinine 0.4. Her CK was 58, with a pos itive MB fraction. Troponins were 0.06 and 0.054. BNP was 408. EKG: Normal sinus rhythm, poor R-w ave progression, no acute changes noted. EXAM: VITAL SIGNS: Blood pressure is 116/72, she is in sinus rhythm. GENERAL: She is a thin aesth etic woman who is eating breakfast at this time. She is alert and oriented x3. HEENT: Mouth and o ropharynx are clear. NECK: Supple. There is no thyromegaly. LUNGS: Show prolonged expiration, wi thout wheezing. CARDIOVASCULAR: Tachycardic rhythm without gallops or rubs. No JVP. ABDOMEN: Sof t, nontender. MUSCULOSKELETAL: Showed no signs clubbing or edema. NEUROLOGIC: Alert and oriented x3. Moving all extremities. ASSESSMENT AND PLAN: Abnormal EKG enzymes. I suspect these are pulmonary in origin. Her EKG does n ot show acute ST changes. Echocardiogram shows no ischemic wall motion abnormalities. There is some flattening of the interventricular septum consistent with her pulmonary status, and increased RV siz e. Whether she had a remote "silent heart attack" is unknown. If it was, it was a small amount of t erritory, or possibly subendocardial. At this point no further workup is necessary In a cardiac camila dpoint, she appears to be improving on pulmonary medicines, and her history did not suggest acute ACS , at least on exam. I did tell her that if situations recur, the situation were to change, we could progress with more aggressive cardiac testing such as cardiac catheterization. However, this will pr obably require intubation and lying flat for the test. For now will do watchful waiting and further testing depending on her clinical course. Case discussed with Dr. Coleman. /[id number]/MODL
[2016-08-09] MEDS: LORazepam 2 MG/ML INJ IVP PRN ×2 (11:51→18:57)
--- NOTE | 2016-08-09 13:21 | HOSPPROG ---
Hospitalist Progress Note Assessment/Plan: 1. acute hypoxemic resp failure: 2/ 2. COPD exacerbation -off BiPap today. Still very poor air movement. Change to PO steroids. Nebs, LQ -alpha-antitrypsin pending 3. Hypothyroidism -TSH subtherapeutic 0.3. May be compounded by acute illness -decrease dose LT4 to 88mcg 4. Tachycardia -multifactorial with pulm disease and hyperthyroidism -off dilt gtt 5. Indeterminate troponin -no e/o wall motion abnormalities. e/o RV dysfunction as expected with pulm disease -Dr. De Anda evaluated. No concern for ischemia. No further cardiac evaluation at this time 6. HLD: statin 7. Diet: regular 8. DVT px: LMWH Disp: warrants ICU admission given acute hypoxia requiring PRN bipap, telemetry Subjective: feeling better Objective: Vital Signs Temp Pulse Resp BP Pulse Ox 36.4 C 108 H 16 145/82 H 93 08/09/16 08:00 08/09/16 12:00 08/09/16 12:00 08/09/16 12:00 08/09/16 12:00 Laboratory Results 08/09/16 03:50 08/09/16 03:50 08/08/16 08/09/16 08/10/16 05:59 05:59 05:59 Intake Total 1738 2169 Output Total 600 Balance 1738 1569 PT 11.9 SEC (12.0-15.0) L 08/07/16 22:40 INR 0.89 (0.83-1.16) 08/07/16 22:40 - Physical Exam Constitutional: uncomfortable, cachectic Eyes: PERRL Ears, Nose, Mouth, Throat: dry mucous membranes Cardiovascular: tachycardia Respiratory: other (very poor air movement) Gastrointestinal: normoactive bowel sounds, soft, non-tender abdomen Genitourinary: no bladder fullness Musculoskeletal: generalized weakness Neurologic: AAOx3 Psychiatric: anxious ICD10 Worksheet Patient Problems: Problems Problem Status Diagnosed COPD exacerbation Acute Respiratory distress Acute
[2016-08-09] MEDS: predniSONE 20 MG TAB PO SCH (15:45)
[2016-08-10 04:10] LABS: ANION GAP 5 mEq/L (8-16); CARBON DIOXIDE 30 mEq/l (22-31); CHLORIDE 99 mEq/L (97-110); CREATININE 0.5 mg/dL (0.6-1.0); GLOMERULAR FILTRATION RATE > 60; GLUCOSE 108 mg/dL (70-100); POTASSIUM 4.5 mEq/L (3.5-5.2); SODIUM 134 mEq/L (134-144)
[2016-08-10 04:13] LABS: HEMATOCRIT 39.2 % (38.0-47.0); HEMOGLOBIN 13.8 g/dL (12.6-16.3); MEAN CELL HEMOGLOBIN 30.9 pg (27.9-34.1); MEAN CELL HEMOGLOBIN CONCENTR. 35.2 g/dL (32.4-36.7); MEAN CELL VOLUME 87.9 fL (81.5-99.8); RED BLOOD CELL COUNT 4.46 10^6/uL (4.18-5.33); RED CELL DISTRIBUTION WIDTH 11.9 % (11.5-15.2)
[2016-08-10] MEDS: LEVOTHYROXINE 88 MCG TAB PO SCH (05:27)
[2016-08-10] MEDS: IPRATROPIUM/ALBUTEROL 3 ML DEYVIAL IH SCH ×5 (06:02→20:35)
--- NOTE | 2016-08-10 08:57 | PDINTPN ---
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 #Weight loss and malnourished chronically Plan: Cardiac echo with right sided increased pressures, no isolated ischemic changes noted Stop IV fluids PT and OT for ambulation and strengthening and home evaluation Proph: lovenox 08/10/16 08:54 Subjective: Still dyspneic on Objective: Vital Signs Temp Pulse Resp BP Pulse Ox 36.9 C 89 18 128/81 H 94 08/10/16 03:53 08/10/16 05:26 08/10/16 05:26 08/10/16 05:26 08/10/16 05:26 Laboratory Results 08/10/16 03:15 08/10/16 03:15 08/09/16 08/10/16 08/11/16 05:59 05:59 05:59 Intake Total 2169 1400 Output Total 600 600 Balance 1569 800 PT 11.9 SEC (12.0-15.0) L 08/07/16 22:40 INR 0.89 (0.83-1.16) 08/07/16 22:40 Physical Exam - Physical Exam General Appearance: mild distress EENT: normal ENT inspection Neck: non-tender Respiratory: wheezing Cardiac/Chest: regular rate, rhythm Abdomen: non-tender, soft Back: Normal inspection Skin: warm/dry Lymphatic: no adenopathy Extremities: non-tender, No pedal edema Neuro/Psych: alert, oriented x 3 ICD10 Worksheet Patient Problems: Problems Problem Status Diagnosed COPD exacerbation Acute Respiratory distress Acute
--- NOTE | 2016-08-10 09:01 | SOAPPROG ---
SOAP Progress Note Assessment/Plan: Assessment:1. abn ekg...prob secondary to rv strain and enlargement..no ischemic rwma on echo...no further work up now unless condition changes 2. nsr with pac's.. no rx if pt had htn woould favor norvasc 2.5 mg or more if needed Plan:1. per pulmonary 08/10/16 08:59 Subjective: pt feeling better..moniter remains nsr with pac's (asymptomatic)..ok to increase activity as tolerated Objective: Vital Signs Temp Pulse Resp BP Pulse Ox 36.9 C 89 18 128/81 H 94 08/10/16 03:53 08/10/16 05:26 08/10/16 05:26 08/10/16 05:26 08/10/16 05:26 Laboratory Results 08/10/16 03:15 08/10/16 03:15 08/09/16 08/10/16 08/11/16 05:59 05:59 05:59 Intake Total 2169 1400 Output Total 600 600 Balance 1569 800 PT 11.9 SEC (12.0-15.0) L 08/07/16 22:40 INR 0.89 (0.83-1.16) 08/07/16 22:40 Physical Exam - Physical Exam Respiratory: decreased breath sounds Cardiac/Chest: normal peripheral pulses, No edema ICD10 Worksheet Patient Problems: Problems Problem Status Diagnosed COPD exacerbation Acute Respiratory distress Acute
[2016-08-10] MEDS: ENOXAPARIN 40 MG/0.4 ML SYR SC SCH (09:51)
[2016-08-10] MEDS: predniSONE 20 MG TAB PO SCH (09:51)
[2016-08-10] MEDS: ASPIRIN EC 81 MG TAB PO SCH (09:52)
[2016-08-10] MEDS: MULTIVITAMINS 1 EACH TAB PO SCH (09:52)
[2016-08-10] MEDS: ATORVASTATIN CALCIUM 10 MG TAB PO SCH (09:52)
[2016-08-10] MEDS: CYANO/VITAMIN B12 100 MCG TAB PO SCH (09:52)
[2016-08-10] MEDS: LORazepam 2 MG/ML INJ IVP PRN ×2 (11:48→22:57)
--- NOTE | 2016-08-10 12:09 | HOSPPROG ---
Hospitalist Progress Note Assessment/Plan: Assessment: 66-year-old female presents with acute hypoxic respiratory failure in the setting of acute COPD exacerbation complicated by new onset atrial fibrillation with rapid ventricular response Plan: 1. Acute hypoxemic resp failure. Evidenced by SpO2 of 84% with objective tachypnea and respiratory rate of 28 with symptomatic shortness of breath and labored breathing 2/2 COPD exacerbation, requiring up to 10 L nasal cannula and BiPAP -weaned oxygen down to 2 L nasal cannula -suspect patient may require home supplemental oxygen moving 4 2. COPD exacerbation. Acute, evidenced by reduced expiratory air movement diffusely throughout without bronchial breath sounds with respiratory failure requiring BiPAP -off BiPap today -alpha-antitrypsin pending -continue oral prednisone, continued scheduled duo nebs, continue antibiotic for anti-inflammatory effect 3. Hypothyroidism. Chronic, TSH demonstrating over suppression -decreased dose LT4 to 88mcg 4. Atrial fibrillation with acute rapid ventricular response. Acute, new problem this provider, further workup indicated. New onset, most likely provoked by acute illness with increased frequency of PACs today and evolution into overt AFib -personally interpreted telemetry, appears the patient has gone into AFib RVR -get EKG to confirm, cycle cardiac enzymes to ensure that no significant myocardial ischemia as provoked this new episode -reviewed echocardiogram which demonstrates diastolic dysfunction, mild to moderate right ventricular systolic dysfunction most likely secondary to COPD, [id number] mitral regurgitation with mild left atrial dilatation -the patient responded favorably to diltiazem earlier in the hospitalization, will administer 10 mg IV push followed by 30 mg q.6 hours orally thereafter -continue aspirin for CVA prophylaxis will discuss systemic anticoagulation with the patient -appreciate ongoing cardiology consultation 5. Indeterminate troponin. No evidence of focal wall motion abnormalities, RV dysfunction is anticipated pulmonary disease -no further cardiac risk stratification has been recommended by Cardiology at this time -get lipid panel and hemoglobin A1c Diet. Regular Prophylaxis. Moderate risk, Lovenox 40 Code. Full Disposition. Anticipated discharge uncertain this time, discussed with zoila Alarcon to transfer to PCU Subjective: Reports that she still is very symptomatically short of breath, improved with DuoNeb Objective: Vital Signs Temp Pulse Resp BP Pulse Ox 36.9 C 120 H 18 128/81 H 96 08/10/16 03:53 08/10/16 10:25 08/10/16 10:25 08/10/16 05:26 08/10/16 10:25 Laboratory Results 08/10/16 03:15 08/10/16 03:15 08/09/16 08/10/16 08/11/16 05:59 05:59 05:59 Intake Total 2169 1400 Output Total 600 600 Balance 1569 800 PT 11.9 SEC (12.0-15.0) L 08/07/16 22:40 INR 0.89 (0.83-1.16) 08/07/16 22:40 - Physical Exam Constitutional: no apparent distress, not in pain, chronically ill appearing, uncomfortable Eyes: PERRL, anicteric sclera, EOMI Cardiovascular: irregularly irregular, tachycardia, No systolic murmur (Distant heart sounds), No edema Respiratory: reduced air movement (On inspiration and expiration bilaterally), bronchial breath sounds (Present bilaterally), No expiratory wheeze, No inspiratory crackles Gastrointestinal: normoactive bowel sounds, soft, non-tender abdomen, no palpable masses Neurologic: AAOx3, sensation intact bilaterally, No weakness Psychiatric: interacting appropriately, not anxious, not encephalopathic, thought process linear ICD10 Worksheet Patient Problems: Problems Problem Status Diagnosed COPD exacerbation Acute Respiratory distress Acute
--- NOTE | 2016-08-10 12:15 | CPEKG ---
Heart Rate: 179 RR Interval: 335 P-R Interval: 148 QRSD Interval: 74 QT Interval: 300 QTC Interval: 518 P Nahma: 0 QRS Nahma: 111 T Wave Nahma: 61 EKG Severity - ABNORMAL ECG - EKG Impression: SINUS TACHYCARDIA WITH PACs EKG Impression: RIGHT AXIS DEVIATION EKG Impression: LOW VOLTAGE QRS EKG Impression: VENTRICULAR PREMATURE COMPLEX EKG Impression: ANTERIOR INFARCT, AGE INDETERMINATE Electronically Signed By: Irving Glynn 11-Aug-2016 21:03:46
[2016-08-10] MEDS ORDERED: DILTIAZEM 25 MG/5 ML VIAL IVP ONE (12:30)
[2016-08-10] MEDS: DILTIAZEM 30 MG TAB PO SCH ×3 (13:30→22:53)
[2016-08-11] MEDS: IPRATROPIUM/ALBUTEROL 3 ML DEYVIAL IH SCH ×2 (05:01→10:17)
[2016-08-11 05:09] LABS: % IMMATURE GRANULYOCYTES 0.8 % (0.0-1.1); ABSOLUTE IMMATURE GRANULOCYTES 0.17 10^3/uL (0.00-0.10); ADD DIFF? NO; ADD MORPH? NO; ADD SCAN? NO; ATYPICAL LYMPHOCYTE FLAG 0 (0-99); FRAGMENT RBC FLAG 0 (0-99); HEMATOCRIT 39.6 % (38.0-47.0); HEMOGLOBIN 13.9 g/dL (12.6-16.3); LEFT SHIFT FLG 0 (0-99); LIPEMIA HEMOLYSIS FLAG 90 (0-99); MEAN CELL HEMOGLOBIN 30.7 pg (27.9-34.1); MEAN CELL HEMOGLOBIN CONCENTR. 35.1 g/dL (32.4-36.7); MEAN CELL VOLUME 87.4 fL (81.5-99.8); MEAN PLATELET VOLUME 8.8 fL (8.7-11.7); PLATELET CLUMPS FLAG 0 (0-99); PLATELET COUNT 242 10^3/uL (150-400); RED BLOOD CELL COUNT 4.53 10^6/uL (4.18-5.33); RED CELL DISTRIBUTION WIDTH 11.9 % (11.5-15.2)
[2016-08-11 05:58] LABS: ANION GAP 5 mEq/L (8-16); CALCIUM 8.5 mg/dL (8.5-10.4); CARBON DIOXIDE 32 mEq/l (22-31); CHLORIDE 98 mEq/L (97-110); CHOLESTEROL 154 mg/dL (140-220); CHOLESTEROL/HDL RATIO 2.66 RATIO (1.00-4.44); CREATININE 0.4 mg/dL (0.6-1.0); GLOMERULAR FILTRATION RATE > 60; GLUCOSE 89 mg/dL (70-100); HIGH DENSITY LIPOPROTEIN 58 mg/dL (40-85); LDL/HDL RATIO 1.47 RATIO (1.00-3.22); LOW DENSITY LIPOPROTEIN 85 mg/dL (80-100); MAGNESIUM 2.5 mg/dL (1.6-2.3); NON-HIGH DENSITY LIPOPROTEIN 96 mg/dL (90-129); POTASSIUM 3.6 mEq/L (3.5-5.2); SODIUM 135 mEq/L (134-144); TRIGLYCERIDE 56 mg/dL (35-135); VERY LOW DENSITY LIPOPROTEINS 11 mg/dL (8-25)
[2016-08-11 06:08] LABS: TROPONIN I < 0.012 ng/mL (0-0.034)
[2016-08-11] MEDS: LEVOTHYROXINE 88 MCG TAB PO SCH (06:34)
[2016-08-11] MEDS: DILTIAZEM 30 MG TAB PO SCH ×2 (06:34→12:56)
[2016-08-11 07:20] VITALS: BP 120/72; TEMP 98.2
--- NOTE | 2016-08-11 09:45 | CPEKG ---
Heart Rate: 88 RR Interval: 682 P-R Interval: 164 QRSD Interval: 80 QT Interval: 360 QTC Interval: 436 P Timewell: 86 QRS Timewell: 92 T Wave Timewell: 52 EKG Severity - ABNORMAL ECG - EKG Impression: SINUS RHYTHM EKG Impression: RIGHT AXIS DEVIATION EKG Impression: LOW VOLTAGE IN FRONTAL LEADS EKG Impression: IVCD NOTED EKG Impression: CONSIDER ANTEROSEPTAL INFARCT Electronically Signed By: Irving Glynn 11-Aug-2016 21:02:07
[2016-08-11] MEDS: CYANO/VITAMIN B12 100 MCG TAB PO SCH (10:01)
[2016-08-11] MEDS: predniSONE 20 MG TAB PO SCH (10:01)
[2016-08-11] MEDS: MULTIVITAMINS 1 EACH TAB PO SCH (10:01)
[2016-08-11] MEDS: ASPIRIN EC 81 MG TAB PO SCH (10:01)
[2016-08-11] MEDS: ENOXAPARIN 40 MG/0.4 ML SYR SC SCH (10:02)
[2016-08-11] MEDS: ATORVASTATIN CALCIUM 10 MG TAB PO SCH (10:02)
[2016-08-11 10:27] VITALS: PULSE 97
--- NOTE | 2016-08-11 10:52 | DX ---
Single Frontal Chest August 11, 2016 1023 hours Clinical Indication: Evaluate for pneumonia. Comparison: August 07, 2016. Findings: The lungs remain hyperinflated with some increased lateral interstitial markings or scarrin g. The upper lobes are decreased in attenuation in comparison to the lower lobes. No focal infiltrate . Impression: Emphysema. No evidence of pneumonia.
--- NOTE | 2016-08-11 11:13 | PDCARPN ---
[id number] 2. Abnormal EKG...prob secondary to rv strain and enlargement..no ischemic WMA on echo...no further work up now unless condition changes 3. NSR with pac's.. no rx if pt had htn would favor norvasc 2.5 mg or more if needed Plan:Continue ASA for anticoagulation. If concern for intermittent A Fib consider OAC. Consider 48 hour Holter Monitor after discharge to evaluate for breakthrough A Fib. Would continue on Diltiazem 30 mg Q 6 hr, or switch to Cardizem 120 mg Long Acting daily. 08/11/16 11:12 08/11/16 15:18 Objective: Vital Signs (8 Hrs) Temp Pulse Resp BP Pulse Ox 08/11/16 10:17 97 14 96 08/11/16 07:18 36.8 C 89 18 120/72 96 08/11/16 06:34 92 109/64 08/11/16 04:55 92 18 95 08/11/16 03:19 36.7 C 88 18 109/64 96 Intake/Output (24 Hrs) 08/10/16 08/11/16 08/12/16 05:59 05:59 05:59 Intake Total 1400 675 Output Total 600 450 Balance 800 225 Intake: Oral (ml) 1200 500 IV Intake (ml) 200 175 Output: Urine (ml) 600 450 Bedside Commode 600 450 Other: Number of Voids Bedside Commode 1 Toilet 1 1 Result Diagrams: 08/11/16 04:06 08/11/16 04:06 Cardiac Labs: Cardiac Lab Results (72 Hrs) 08/11/16 08/10/16 08/10/16 04:06 17:00 11:35 Troponin I < 0.012 0.019 0.021 08/08/16 12:10 Troponin I 0.054 H Telemetry: RSR - Physical Exam Cardiovascular: regular rate and rhythm, no murmurs, no rubs Respiratory: clear to auscultate bilat, no crackles, no wheezes Skin: warm Neurologic: AAOx3 Psychiatric: cooperative, interactive ICD10 Worksheet Patient Problems: Problems Problem Status Diagnosed Atrial fibrillation with RVR Acute COPD exacerbation Acute Respiratory distress Acute
[2016-08-11 11:22] VITALS: RESP 20
--- NOTE | 2016-08-11 12:19 | PDDCSUM ---
Discharge Summary Discharge Summary: DISCHARGE SUMMARY FOLLOW-UP ITEMS: 1. Get event monitor or loop recorder to gauge atrial fibrillation burden 2. Repeat CBC did demonstrate resolution of leukocytosis 3. Repeat TSH as an outpatient through primary care office 4. Hemoglobin A1c and alpha-1 antitrypsin levels pending at time of discharge DATE OF ADMISSION: 08/07/2016 DATE OF DISCHARGE: 08/11/2016 DISCHARGE DIAGNOSES: 1. Acute hypoxic respiratory failure 2. Acute COPD exacerbation with severe underlying COPD 3. Chronic hypothyroidism with TSH suppression 4. New onset atrial fibrillation with acute rapid ventricular response 5. Indeterminate troponin level CONSULTATIONS: Cardiology PROCEDURES / IMAGING: Chest x-ray demonstrating no focal pneumonia, EKG demonstrating supraventricular tachycardia versus atrial fibrillation CHIEF COMPLAINT: Acute shortness of breath SUBJECTIVE: Patient reports that her shortness of breath has significantly improved and she is able to safely transfer, she is requesting discharge home PHYSICAL EXAM ON DISCHARGE: Systolic blood pressure is 110, heart rate in the 90s, satting 84-87% on room air at rest, afebrile, poor inspiratory and expiratory air movement bilaterally without any expiratory wheezes or bronchial breath sounds, heart rhythm is regular and not tachycardic LABS ON DISCHARGE: Serum bicarb 32, creatinine 0.4, white blood cell count 27545, hemoglobin 13.9, hemoglobin A1c pending, LDL is 85, troponin level is negative HOSPITAL COURSE BY PROBLEM: 1. Acute hypoxic respiratory failure. Evidenced by SpO2 of 84% with objective tachypnea and respiratory rate of 28 with symptomatic shortness of breath and labored breathing secondary to acute COPD exacerbation, required up to 10 L nasal cannula and BiPAP therapy. Patient was treated for her COPD exacerbation and her oxygen requirements reduced down to 4 L nasal cannula and she was safely transition to the PCU. She is currently requiring 4 L nasal cannula at discharge and this will be set up the home oxygen. 2. Acute COPD exacerbation. Evidenced by reduced expiratory air movement diffusely throughout with respiratory failure requiring BiPAP therapy. She has underlying severe COPD. It is unclear what her precipitant was although it is possibly a seasonal URI. She was treated aggressively with steroids, scheduled DuoNeb, as needed albuterol, BiPAP therapy. Given that she has underlying severe COPD, she will receive a steroid taper now that she has received 5 days of oral prednisone 60 mg. Her taper will be 40 mg x3 days, 20 mg x3 days, then evaluation by her outpatient supervisor pressing department. She will continue on her home Dulera therapy as well as as needed albuterol. If she requires nebulizer at home, this will be ordered by her outpatient supervisor pressing department. Her leukocytosis is most likely secondary to stress demargination in the setting of acute illness as well as steroid induced de margination. She will have follow-up CBC as an outpatient. Repeat chest x-ray demonstrated no evidence of pneumonia. She was not localizing any other infectious symptoms. 3. Chronic hypothyroidism. Patient evidence of TSH suppression and in the setting of AFib RVR, the dosage should be reduced. Her 100 mcg reduced 88 mcg. She should have an outpatient TSH level through PCPs office. 4. New onset atrial fibrillation with acute rapid ventricular response. The patient had evidence of irregular tachycardia and this was initially read as supraventricular tachycardia versus frequent PACs on telemetry. This appeared to evolve into atrial fibrillation and she was given IV diltiazem and then transitioned to oral short-acting diltiazem. This is chemically cardioverted the patient and she is safe to be discharged home on diltiazem continuous dosing 120 mg daily. She will utilize aspirin 81 mg for CVA prevention. If the patient has evidence of ongoing AFib then systemic anticoagulation for CVA prevention should be considered. Recommend to the patient that she follow up with [facility] and have either an outpatient event monitor or loop recorder placed to gauge AFib burden. 5. Indeterminate troponin. Most likely secondary to transient myocardial strain in the setting of acute COPD exacerbation. Echocardiogram demonstrated evidence of moderate RV dysfunction, most likely secondary to underlying COPD. She was seen in consultation by Cardiology and they did not recommend any further cardiac risk stratification. She had an LDL performed which is 85 and hemoglobin A1c pending at time of discharge. She will be continued on her home dosage of aspirin 81 mg daily as well as her home statin. A beta-blake was not prescribed given her underlying COPD exacerbation. DISCHARGE MEDICATIONS: Please see official discharge medication reconciliation sheet in chart , of note initiating diltiazem continuous dosing 120 mg daily, continue aspirin 81 mg daily, prescribing steroid taper 40 mg x3 days then 20 mg x3 days, lower dose of Synthroid to 88 mcg daily DISCHARGE INSTRUCTIONS: Please follow up with outpatient supervisor pressing department within 3-5 days, schedule outpatient cardiology appointment, follow up with PCP thereafter. TIME SPENT: Greater than 30 minutes were spent on direct patient care, as well as discharge planning and preparation.
[2016-08-11 12:20] LABS: HEMOGLOBIN A1C 6.2 % (4.0-6.0)
[2016-08-11 13:53] VITALS: O2SAT 90
== END 2016-08-11 14:49 | disposition home or self-care (01) | DRG 308 ==
LOC: EDUNIT# → F2N 23:59 → F2W 08-10 14:52
PROVIDERS: ADMIT Internal Medicine; ATTEND Internal Medicine
DX: I48.91 Unspecified atrial fibrillation (principal); J96.01 Acute respiratory failure with hypoxia; J44.1 Chronic obstructive pulmonary disease with (acute) exacerbation; E03.9 Hypothyroidism, unspecified; E78.5 Hyperlipidemia, unspecified; I25.2 Old myocardial infarction; Z87.891 Personal history of nicotine dependence; Z79.51 Long term (current) use of inhaled steroids; Z99.81 Dependence on supplemental oxygen
CPT/HCPCS: 82103-90; 96365; 97116-GP; 97161-GP; 97165-GO; 97530-GO; 97535-GO; J1650; J1956